=== PATIENT | male | born 1990 | race Two or more races ===

== ENCOUNTER 2018-11-20 13:29 | Emergency (ER) | payer OTHER ==
[~2018-11-20] VITALS: Ht 180.3 cm; Wt 98.7 kg
[2018-11-20 13:30] VITALS: BP 144/73
--- NOTE | 2018-11-20 14:48 | PHYS DOC ---
Adult General Chief Complaint Chief Complaint: HAND PROBLEM HPI HPI 28-year-old male presents with lacerations of the right hand. Patient states that he punched a piece of glass yesterday and it broke. He sustained several lacerations and decided he showed them checked out. The bleeding is controlled. Patient's tetanus is up-to-date. He has no other complaints this time. Review of Systems Review of Systems Constitutional: Denies fever or chills [] Eyes: Denies change in visual acuity, redness, or eye pain [] HENT: Denies nasal congestion or sore throat [] Respiratory: Denies cough or shortness of breath [] Cardiovascular: No additional information not addressed in HPI [] GI: Denies abdominal pain, nausea, vomiting, bloody stools or diarrhea [] : Denies dysuria or hematuria [] Musculoskeletal: Denies back pain or joint pain [] Integument: Lacerations of the right hand[] Neurologic: Denies headache, focal weakness or sensory changes [] Endocrine: Denies polyuria or polydipsia [] All other systems were reviewed and found to be within normal limits, except as documented in this note. Allergies Allergies Allergies Coded Allergies Type Severity Reaction Last Updated Verified Penicillins Allergy Unknown 11/20/18 Yes Physical Exam Physical Exam Constitutional: Well developed, well nourished, no acute distress, non-toxic appearance. [] HENT: Normocephalic, atraumatic, bilateral external ears normal, oropharynx moist, no oral exudates, nose normal. [] Eyes: PERRLA, EOMI, conjunctiva normal, no discharge. [] Neck: Normal range of motion, no tenderness, supple, no stridor. [] Cardiovascular:Heart rate regular rhythm, no murmur [] Lungs & Thorax: Bilateral breath sounds clear to auscultation [] Abdomen: Bowel sounds normal, soft, no tenderness, no masses, no pulsatile masses. [] Skin: Multiple superficial lacerations of the right dorsal hand.[] Back: No tenderness, no CVA tenderness. [] Extremities: No tenderness, no cyanosis, no clubbing, ROM intact, no edema. [] Neurologic: Alert and oriented X 3, normal motor function, normal sensory function, no focal deficits noted. [] Psychologic: Affect normal, judgement normal, mood normal. [] EKG EKG [] Radiology/Procedures Radiology/Procedures [] Course & Med Decision Making Course & Med Decision Making Pertinent Labs and Imaging studies reviewed. (See chart for details) The patient's lacerations are superficial. They were all coagulated at this time. The patient has full motion and is neurovascularly intact. Imaging is not warranted. The patient's tetanus is up-to-date. I've advised that the patient keep them clean and covered, especially at work. If signs of infection develop, he will follow-up. He is stable for discharge at this time. [] Dragon Disclaimer Dragon Disclaimer This electronic medical record was generated, in whole or in part, using a voice recognition dictation system. Departure Departure: Impression: Primary Impression: Superficial laceration of right hand Disposition: 01 HOME, SELF-CARE Condition: STABLE Referrals: TARSHA VOSS (PCP) Patient Instructions: Abrasion, [id number] Problem Qualifiers Primary Impression: Superficial laceration of right hand Encounter type: initial encounter Qualified Codes: S61.411A - Laceration without foreign body of right hand, initial encounter CHERRIE AYALA DO Nov 20, 2018 14:48
== END 2018-11-20 14:58 | disposition home or self-care (01) ==
LOC: ER 13:29
DX: S61.411A Laceration without foreign body of right hand, initial encounter (principal); Z88.0 Allergy status to penicillin; W25.XXXA Contact with sharp glass, initial encounter; Y93.89 Activity, other specified; Y92.89 Other specified places as the place of occurrence of the external cause; Y99.8 Other external cause status
CPT/HCPCS: 99283